=== PATIENT | female | born 1985 | race Caucasian/White ===

== ENCOUNTER → 2019-01-07 07:20 | Outpatient (CLI) | payer OTHER, MEDICAID, SELFPAY ==
[2019-01-07 08:54] LABS: Hemoglobin 14.9 g/dL (12.0-16.0); Mean Corpuscular HGB Conc 34.6 % (30-36); Mean Corpuscular Hemoglobin 32.2 PG (26-34); Mean Corpuscular Volume 93.2 fL (80-100); Platelet Count 183 X10^3/uL (150-400); Red Blood Cell Count 4.61 X10^6/uL (4.0-5.2); Red Cell Distribution Width 13.3 % (11.6-14.8)
[2019-01-07 09:29] LABS: Alanine Aminotransferase 21 IU/L (9-52); Albumin 4.3 g/dL (3.5-5.0); Albumin Globulin Ratio 2.2 (1.0-2.8); Alkaline Phosphatase 32 U/L (38-126); Aspartate Aminotransferase 19 IU/L (14-36); Bilirubin Total 0.5 mg/dL (0.2-1.3); Blood Urea Nitrogen 14 mg/dL (7-17); Calcium 8.7 mg/dL (8.4-10.2); Carbon Dioxide 27 mmol/L (22-32); Chloride 104 mmol/L (98-107); Cholesterol 185 mg/dL (140-199); Estimated Glomerular Filt Rate > 60.0 mL/min (>60); Glucose 92 mg/dL (70-100); HDL Cholesterol 68 mg/dL (40-60); HEMOLYSIS < 15 (0-50); LDL Cholesterol Calculated 109 mg/dL (<100); Potassium 4.4 mmol/L (3.4-5.1); Sodium 139 mmol/L (137-145); Total Protein 6.3 g/dL (6.3-8.2); Triglycerides 39 mg/dL (35-150)
[2019-01-07 09:56] LABS: TSH w/ Reflex to FT4 1.13 uIU/mL (0.47-4.68)
[2019-01-07 10:12] LABS: Vitamin B12 266 pg/mL (239-931)
== END ==
PROVIDERS: Visit Provider Nurse Practitioner Family
DX: R51 Headache (principal); Z00.00 Encounter for general adult medical examination without abnormal findings; R41.0 Disorientation, unspecified
CPT/HCPCS: 36415; 80053; 80061; 82607; 84443; 85027

== ENCOUNTER → 2019-01-26 11:53 | Outpatient (CLI) | payer OTHER, MEDICAID, SELFPAY ==
--- NOTE | 2019-01-26 11:55 | DI.RAD.S_ITS ---
PROCEDURE: XR CERVICAL SPINE 2V OR 3V INDICATIONS: chronic neck pain TECHNIQUE: 3 view(s) of the cervical spine were acquired. COMPARISON: None. FINDINGS: Bones: No fractures or dislocations to the T1 level. The lateral masses of C1 appear intact on the odontoid view. No suspicious bony lesions. Straightening of the normal lordotic curvature. The disc spaces appear grossly preserved. Soft tissues: No prevertebral soft tissue swelling. IMPRESSION: Straightening of the normal lordotic curvature. Dictated by: Sean Iqbal M.D. on 01/26/2019 at 12:37 Approved by: Sean Iqbal M.D. on 01/26/2019 at 12:39
== END ==
PROVIDERS: Visit Provider Nurse Practitioner Family
DX: M54.2 Cervicalgia (principal); G89.29 Other chronic pain
CPT/HCPCS: 72040

== ENCOUNTER → 2020-09-21 16:00 | Outpatient (CLI) | payer OTHER, SELFPAY ==
[2020-09-21] MEDS: COVID-19 VACC(MODERNA-1)/PF 100 MCG/0.5 ML VIAL IM (16:09)
== END ==
PROVIDERS: Visit Provider Internal Medicine
DX: Z23 Encounter for immunization (principal)
CPT/HCPCS: 0011A; 91301

== ENCOUNTER → 2020-10-18 13:20 | Outpatient (CLI) | payer OTHER, SELFPAY ==
[2020-10-18] MEDS: COVID-19 VACC #2, MRNA(MOD) 100 MCG/0.5 ML VIAL IM (13:33)
== END ==
PROVIDERS: Visit Provider Internal Medicine
DX: Z23 Encounter for immunization (principal)
CPT/HCPCS: 0012A; 91301

== ENCOUNTER → 2024-03-24 13:18 | Outpatient (CLI) | payer OTHER, SELFPAY ==
[2024-03-24 14:18] LABS: Hematocrit 40.8 % (36-46); Hemoglobin 14.3 g/dL (12.0-16.0); Mean Corpuscular HGB Conc 34.9 % (30-36); Mean Corpuscular Hemoglobin 32.5 PG (26-34); Mean Corpuscular Volume 93.1 fL (80-100); Platelet Count 203 X10^3/uL (150-400); Red Blood Cell Count 4.39 X10^6/uL (4.0-5.2); Red Cell Distribution Width 13.8 % (11.6-14.8); White Blood Cell Count 5.8 X10^3/uL (4.5-11.0)
[2024-03-24 15:15] LABS: Alanine Aminotransferase 26 IU/L (<35); Albumin 4.5 g/dL (3.5-5.0); Alkaline Phosphatase 33 U/L (38-126); Aspartate Aminotransferase 24 IU/L (14-36); BUN Creatinine Ratio 17.1 (6-22); Bilirubin Total 0.8 mg/dL (0.2-1.3); Blood Urea Nitrogen 13 mg/dL (7-17); Calcium 8.9 mg/dL (8.4-10.2); Carbon Dioxide 27 mmol/L (22-32); Chloride 106 mmol/L (98-107); Cholesterol 188 mg/dL (140-199); Estimated Glomerular Filt Rate > 60 mL/min (>60); Globulin 2.3 g/dL (1.7-4.1); Glucose 106 mg/dL (70-100); HDL Cholesterol 91 mg/dL (40-60); HEMOLYSIS < 15 (0-50); LDL Cholesterol Calculated 90 mg/dL (<100); Potassium 3.9 mmol/L (3.4-5.1); Sodium 137 mmol/L (137-145); Total Protein 6.8 g/dL (6.3-8.2); Triglycerides 34 mg/dL (35-150)
[2024-03-24 15:55] LABS: Hepatitis B Surface Antigen NEGATIVE s/c (NEGATIVE)
[2024-03-24 16:12] LABS: HIV 1 & 2 Ab/Ag 4th Gen Combo NEGATIVE (NEGATIVE); Hep C Virus Ab w/Reflex Quant NEGATIVE s/c (NEGATIVE)
[2024-03-24 17:45] LABS: TSH w/ Reflex to FT4 0.81 uIU/mL (0.47-4.68)
[2024-03-26 01:36] LABS: HSV1IGG < 0.91 index (0.00-0.90)
== END ==
PROVIDERS: PCP Registered Nurse Diabetes Educator; Referring Provider Registered Nurse Diabetes Educator; Visit Provider Registered Nurse Diabetes Educator
DX: Z00.00 Encounter for general adult medical examination without abnormal findings (principal); Z72.51 High risk heterosexual behavior
CPT/HCPCS: 36415; 80053; 80061; 84443; 85027; 86592; 86695; 86696; 86803; 87340; 87389

== ENCOUNTER → 2024-03-28 18:30 | Outpatient (CLI) | payer OTHER, SELFPAY | PROVIDERS: PCP Registered Nurse Diabetes Educator; Visit Provider Student in an Organized Health Care Education/Training Program | DX: N89.8 Other specified noninflammatory disorders of vagina (principal) | CPT/HCPCS: 87210 ==

== ENCOUNTER → 2024-03-28 18:43 | Outpatient (CLI) | payer OTHER, SELFPAY ==
--- NOTE | 2024-03-28 18:44 | DI.RAD.S_ITS ---
PROCEDURE: XR HAND LT MIN 3V INDICATIONS: proximal 4/5 metacarpal tender TECHNIQUE: 3 views of the hand(s) acquired. COMPARISON: None. FINDINGS: Bones: No fractures or dislocations. Carpal bones are normally aligned. No suspicious bony lesions. Chronic ossification along the ulnar side of the index finger distal interphalangeal joint. Soft tissues: No suspicious soft tissue calcifications. IMPRESSION: No acute bony abnormality. Dictated by: Lance Renner M.D. on 03/28/2024 at 20:05 Approved by: Lance Renner M.D. on 03/28/2024 at 20:06
== END ==
PROVIDERS: PCP Registered Nurse Diabetes Educator; Referring Provider Student in an Organized Health Care Education/Training Program; Visit Provider Student in an Organized Health Care Education/Training Program
DX: T14.90XA Injury, unspecified, initial encounter (principal); M79.642 Pain in left hand; N89.8 Other specified noninflammatory disorders of vagina; X58.XXXA Exposure to other specified factors, initial encounter
CPT/HCPCS: 73130; 87210

== ENCOUNTER 2024-12-02 09:38 | Day surgery (SDC) | payer BC, SELFPAY ==
[2024-11-23 08:02] VITALS: BMI 22.5
[2024-12-02] MEDS: LACTATED RINGERS 1,000 ML 42 ML IV (10:06)
[2024-12-02 10:11] VITALS: BP 100/69; PULSE 69; RESP 16; TEMP 36.8; O2SAT 100; BMI 22.4
--- NOTE | 2024-12-02 11:13 | PM.PREOP ---
Pre-operative Note COVID-19 COVID-19 status: Not tested Interval Note History & Physical reviewed/Exam performed by Physician: Yes Changes to H&P: No
[2024-12-02] MEDS: CEFAZOLIN 2 GM/100 ML PREMIX 100 ML IV (11:35)
--- NOTE | 2024-12-02 11:41 | SUR.OPER ---
Lithotomy on padded OR bed, head on pillow, arms secured on padded arm boards at <90 degrees abduction. Legs secured in padded yellow fins stirrups.
--- NOTE | 2024-12-02 11:41 | SUR.OPER ---
Lithotomy on padded OR bed, head on pillow, arms secured on padded arm boards at <90 degrees abduction. Legs secured in padded yellow fins stirrups.
[2024-12-02] MEDS: BUPIVACAINE 0.5% W/ EPI (PF) 30 ML VIAL INJ (11:46)
[2024-12-02 12:49] VITALS: BP 104/69; PULSE 74; RESP 15; TEMP 36.6; O2SAT 100
[2024-12-02 12:52] VITALS: BP 107/67; PULSE 72; RESP 16; O2SAT 98
--- NOTE | 2024-12-02 12:54 | SUR.OPER ---
Lithotomy on padded OR bed, head on pillow, arms secured on padded arm boards at <90 degrees abduction. Legs secured in padded yellow fins stirrups.
[2024-12-02] MEDS: ACETAMINOPHEN IV 1,000 MG/100 ML VIAL 400 MG IV (12:55)
[2024-12-02 12:57] VITALS: BP 101/65; PULSE 62; RESP 16; O2SAT 99
--- NOTE | 2024-12-02 12:58 | PM.GYNOP.1 ---
Operative Date/Time/Diagnoses Date of procedure: 12/02/24 Time of procedure: 11:25 Pre-op diagnosis: Labial hypertrophy Hemorrhoidal tag Post-op diagnosis: same Procedure & Clinicians Procedure: Procedures Operation Date: 12/02/24 10:45 p Labiaplasty, Bilateral s Removal Hemorrhoidl tag Indications: Nelda returned for her preop visit prior to bilateral labioplasty and removal of hemorrhoidal tag. Both her labia are hypertrophic with the right greater than the left but both cause significant discomfort with physical and sexual activity. She presents today for her scheduled surgery. 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 Hemorrhoidal tag at 12:00. Closure Type: primary Specimen(s): none Estimated blood loss (mL): 20 Blood products transfused: none Procedure in detail: With the patient under satisfactory general anesthesia in the modified dorsal lithotomy position, the perineum, perianal area and suprapubic areas were all prepped and draped in usual manner for labioplasty. Pre-surgical safety time-out was then taken in accordance with [facility] OR protocols. The area for trimming was identified bilaterally and each was marked using Allis clamps define the incision lines bilaterally. Once the labiae were marked for tissue removal, the labia were each trimmed after infiltration with 0.5% Marcaine with epinephrine. Closure of the labial tissues was then performed using 4-0 Monocryl subcuticular closure. The suture line was then covered with skin glue for additional reinforcement. No significant bleeding was noted. The hemorrhoidal tag was then infiltrated at the base with 0.5 % Marcaine with epinephrine and a single transfixing suture of 2-0 Vicryl was placed at the base. The tag itself was then excised with Metzenbaum scissors and was rendered hemostatic. The patient was then awakened from anesthesia and transferred to the PACU for a period of observation and recovery after having tolerated the procedure well. Complications: none Post-operative Condition: stable Disposition: PACU Plan for aftercare: Routine postoperative care with perineal ice packs and bed rest for the next couple of days to limit swelling. Patient will also be using red laser light to facilitate healing as well. Follow-up will be 2 weeks after surgery.
[2024-12-02 13:02] VITALS: BP 95/51; PULSE 70; RESP 16; O2SAT 100
[2024-12-02] MEDS: OXYCODONE IR 5 MG TABLET PO (13:14)
[2024-12-02 13:16] VITALS: BP 96/65; PULSE 60; RESP 15; TEMP 36.6; O2SAT 98
== END 2024-12-02 13:35 | disposition home or self-care (01) ==
PROVIDERS: PCP Registered Nurse Diabetes Educator; Referring Provider Obstetrics & Gynecology; Visit Provider Obstetrics & Gynecology
PROC: (CPT 15839; principal; 2024-12-02 10:45)
DX: N90.60 Unspecified hypertrophy of vulva (principal); N94.10 Unspecified dyspareunia; K64.4 Residual hemorrhoidal skin tags
CPT/HCPCS: 15839; 46220; 81025; J0131; J0690; J1100; J2405; J2704; J3010